=== PATIENT | male | born 1985 | race Caucasian/White ===

== ENCOUNTER → 2019-09-24 12:02 | Outpatient (BNVA) | payer OTHER, SELFPAY | PROVIDERS: Family Provider Family Medicine; PCP Family Medicine; Visit Provider Family Medicine | DX: J30.2 Other seasonal allergic rhinitis (principal); Z13.6 Encounter for screening for cardiovascular disorders | CPT/HCPCS: 80053; 80061; 85025 ==

== ENCOUNTER 2019-10-16 08:16 | Outpatient (CLI) | payer OTHER, SELFPAY ==
--- NOTE | 2019-10-16 08:45 | US_ITS ---
WS: [id number] RIGHT UPPER QUADRANT ULTRASOUND HISTORY: elevated lfts COMPARISON: None available. Liver: 16.8 cm in length. Mildly enlarged liver. Moderate heterogeneity throughout the liver with are as of hepatic steatosis and sparing. No mass identified. Gallbladder: Normally distended gallbladder with no stones or wall thickening. CBD: 0.3 cm Pancreas: Normal size and echogenicity. Right kidney: 12.2 cm in length. Normal echogenicity with no mass or hydronephrosis. Aorta and IVC: Unremarkable. No ascites. US/US abdomen limited [id number] IMPRESSION: 1. Normal gallbladder. 2. Mild hepatic enlargement with moderate hepatic steatosis.
== END 2019-10-16 08:17 | disposition home or self-care (01) ==
LOC: RAD 08:19
PROVIDERS: PCP Family Medicine; Visit Provider Family Medicine
DX: R74.8 Abnormal levels of other serum enzymes (principal); R16.0 Hepatomegaly, not elsewhere classified; K76.0 Fatty (change of) liver, not elsewhere classified
CPT/HCPCS: 76705

== ENCOUNTER 2019-11-08 15:06 | Outpatient (CLI) | payer OTHER, SELFPAY | END 2019-11-08 15:07 | disposition home or self-care (01) | PROVIDERS: PCP Family Medicine; Visit Provider Surgery | DX: R19.4 Change in bowel habit (principal) | CPT/HCPCS: 83630; 87493; 87506 ==

== ENCOUNTER → 2020-10-09 14:43 | Outpatient (BNVA) | payer OTHER, SELFPAY | PROVIDERS: PCP Family Medicine; Visit Provider Nurse Practitioner Family | DX: Z20.822 Contact with and (suspected) exposure to COVID-19 (principal) | CPT/HCPCS: 87635 ==

== ENCOUNTER → 2021-02-16 10:41 | Outpatient (BNVA) | payer OTHER, SELFPAY | PROVIDERS: PCP Family Medicine; Visit Provider Family Medicine | DX: Z13.6 Encounter for screening for cardiovascular disorders (principal) | CPT/HCPCS: 80053; 80061; 85025 ==

== ENCOUNTER → 2022-07-11 10:23 | Outpatient (BNVA) | payer OTHER, SELFPAY | PROVIDERS: PCP Family Medicine; Visit Provider Nurse Practitioner Family | DX: R19.7 Diarrhea, unspecified (principal) | CPT/HCPCS: 80053; 85025; 87506 ==

== ENCOUNTER → 2022-09-26 09:51 | Outpatient (BNVA) | payer OTHER, SELFPAY | PROVIDERS: PCP Family Medicine; Visit Provider Family Medicine | DX: N63.10 Unspecified lump in the right breast, unspecified quadrant (principal) | CPT/HCPCS: 80053; 84146 ==

== ENCOUNTER 2022-10-19 09:38 | Outpatient (CLI) | payer BC, MEDICAID, SELFPAY ==
--- NOTE | 2022-10-19 10:00 | US_ITS ---
WS: [id number] ULTRASOUND RIGHT BREAST HISTORY: right breast mass, 37-year-old male. COMPARISON: None available. TECHNIQUE: 2-D and Doppler. There is a hypoechoic irregular shaped mass in the RIGHT retroareolar position measuring 1.3 x 1.8 x 1.0 cm. Mild increased vascularity. This has a most typical appearance for gynecomastia. Asymmetric t o the LEFT breast. IMPRESSION: US/US breast RT complete [id number] BI-RADS: 2-Benign FOLLOW-UP: See Report Palpable mass RIGHT retroareolar region is most consistent with gynecomastia.
== END 2022-10-19 09:39 | disposition home or self-care (01) ==
PROVIDERS: PCP Family Medicine; Visit Provider Family Medicine
DX: N63.10 Unspecified lump in the right breast, unspecified quadrant (principal)
CPT/HCPCS: 76641

== ENCOUNTER → 2022-10-20 08:57 | Outpatient (BNVA) | payer BC, MEDICAID, SELFPAY | PROVIDERS: PCP Family Medicine; Referring Provider Family Medicine; Visit Provider Family Medicine | DX: N62 Hypertrophy of breast (principal) | CPT/HCPCS: 82670; 83002; 84403; 84439; 84443; 84702 ==

== ENCOUNTER → 2024-05-21 15:15 | Outpatient (BNVA) | payer BC, MEDICAID, SELFPAY | PROVIDERS: PCP Family Medicine; Visit Provider Family Medicine | DX: Z13.6 Encounter for screening for cardiovascular disorders (principal) | CPT/HCPCS: 80053; 80061; 84443; 85025 ==